=== PATIENT | male | born 1960 | race Caucasian/White ===

== ENCOUNTER 2020-07-10 04:11 | Outpatient (CLI) | payer BC, SELFPAY ==
--- NOTE | 2020-07-10 08:28 | DI.CTLCSR_ITS ---
EXAM: CT CHEST LUNG CANCER SCREEN CLINICAL HISTORY: SCREENING FOR LUNG CA,CURRENT SMOKER, F17.200 TECHNIQUE: CT examination of the chest was performed utilizing low-dose lung cancer screening protoc ol. COMPARISON: No exams were available for comparison FINDINGS: Images obtained through the upper abdomen show unremarkable appearance of visualized portions of the liver and spleen. There is no mediastinal or hilar adenopathy. Mediastinal vascular structures appear intact by noncon trast criteria. Tracheobronchial tree appears intact. No pleural effusion or pleural-based mass. There are few tiny noncalcified intrapulmonary nodules, the largest a 4 millimeter mean diameter nodu le located in a pleural-based location in the left lower lobe laterally. There are moderate predominantly apical pulmonary emphysematous changes. IMPRESSION: Negative LDCT of the chest.Lung RADS Cat 2 - Benign Appearance / Behavior: Nodules with a very low li kelihood of becoming a clinically active cancer due to size or lack of growth Continue annual screening with LDCTin 12 months. RADIATION DOSE DELIVERED: LINK-TO-SR Total DLP 87.45mGy.cm Total DLP RADIATION OPTIMIZATION: All CT scans at this facility use at least one of these dose optimization te chniques: automated exposure control; mA and/or kV adjustment per patient size (includes targeted exa ms where dose is matched to clinical indication); or iterative reconstruction.
== END 2020-07-10 04:31 ==
PROVIDERS: PCP Family Medicine; Visit Provider Family Medicine
DX: F17.210 Nicotine dependence, cigarettes, uncomplicated (principal); R91.8 Other nonspecific abnormal finding of lung field
CPT/HCPCS: 71271

== ENCOUNTER → 2022-01-21 16:00 | Outpatient (CLI) | payer OTHER, BC, SELFPAY ==
--- NOTE | 2022-01-21 11:45 | DI.RAD_ITS ---
Exam(s) XR HAND LT COMPLETE EXAM: XR HAND LT COMPLETE CLINICAL HISTORY: CRUSHING INJURY-S67.20XA,. TECHNIQUE: 2D digital imaging was performed of the left hand. Three views were obtained. AP, later al and oblique views were obtained. COMPARISON: No exams were available for comparison FINDINGS: BONES: There is an oblique lucency seen through the distal aspect of the proximal phalanx of the 3rd finger which may represent a nondisplaced fracture. No other evidence of a fracture is seen. No bon y destructive lesion is seen. Postsurgical changes are seen throughout the left hand. JOINTS: No dislocation present. SOFT TISSUE: Normal. IMPRESSION: Findings suspicious for a nondisplaced fracture involving the distal aspect of the proximal phalanx o f the 3rd finger. Please correlate with the patient's site of pain. DATA REPOSITORY: RADIATION DOSE DELIVERED:
== END ==
PROVIDERS: PCP Family Medicine; Visit Provider Nurse Practitioner Family
DX: S67.22XA Crushing injury of left hand, initial encounter (principal); X58.XXXA Exposure to other specified factors, initial encounter
CPT/HCPCS: 73130